=== PATIENT | male | born 1975 ===

== ENCOUNTER 2017-07-26 04:10 | Emergency (ER) | payer SELFPAY ==
[2017-07-26 04:43] VITALS: RESP 16
--- NOTE | 2017-07-26 05:05 | ED PDOC ---
HPI: Back Chief Complaint (Provider): Syncope History Per: Patient History/Exam Limitations: no limitations Onset/Duration Of Symptoms: Hrs Current Symptoms Are (Timing): Still Present Full Body Front + Back: 1 - Lumbar pain Quality Of Discomfort: Sharp ("pinching") Severity: Moderate Pain Scale Rating Of: 8 Previous Symptoms: Back Pain (lumbar) Exacerbating Factor(s): Movement Additional History Per: Family () Additional Complaint(s): Mr. Gennaro Blount is a pleasant 41 yo male with no sig PMHx presents to the ED after 2 syncopal episodes. stated that she was helping him to urinate when suddenly after voiding, he had lost consciousness for about 1 minute. After regaining consciousness, he was syncopal again, not responsive but breathing for an additional 2 minutes. Events leading to him requiring assistance to void : Yesterday, while at work lifting about 40 lbs, he felt a sudden and "pinching " pain at mid lumbar spine. Afterwards, he was seen by the company's physician who shared that Mr. Blount's XR of the lumbar spine was negative for fractures. Per patient, he was given an injection but he cant remember what. He was also given motrin for pain. Pain is at the medial aspect of his lower lumbar spine radiating bilaterally to his hips. Pain is intermittent ranging from as high as 10/10 to 3/10 when resting. Aggravating factors include slight movement. Alleviating factors include rest. Denies lower extremity loss of function, numbness, tingling, bowel/urinary incontinence, saddle anesthesia or recent direct trauma to his lumbar spine. He denies history of syncope. PCP: Dr. Jameson Monzon PMHx: none PSurgHx: none FamHx: htn Soc: Denies: smoking, alcohol, illicit drugs Meds: none NKDA <Rodriguez Ibarra - Last Filed: 07/26/17 06:58> <Gaston Smith - Last Filed: 07/26/17 19:44> Time Seen by Provider: 07/26/17 04:49 Chief Complaint (Nursing): Back Pain Past Medical History Vital Signs: Last Vital Signs Temp Pulse 66 07/26/17 04:41 Resp 16 07/26/17 04:41 BP 120/74 07/26/17 04:41 Pulse Ox 100 07/26/17 04:41 - Medical History PMH: No Chronic Diseases - Surgical History Surgical History: No Surg Hx - Family History Family History: States: Hypertension <Zay Ibarraang - Last Filed: 07/26/17 06:58> Vital Signs: Last Vital Signs Temp 97.3 F L 07/26/17 07:13 Pulse 80 07/26/17 10:06 Resp 16 07/26/17 10:06 BP 118/67 07/26/17 10:06 Pulse Ox 99 07/26/17 19:43 <Gaston Smith - Last Filed: 07/26/17 19:44> - Allergies Allergies/Adverse Reactions: Allergies Allergy/AdvReac Type Severity Reaction Status Date / Time No Known Allergies Allergy Verified 07/26/17 04:43 Supervising Attending Note - Attestation: I have personally seen and examined this patient.: Yes I have fully participated in the care of the patient.: Yes I have reviewed all pertinent clinical information: Yes - Notes: Notes:: Lower back pain, likely MSK in nature, no neuro deficit, patient dehydrated and states "can't eat", tired appearing, starting to improve with zofran, IVF, signed out to Dr. Stallings pending CT head. <Gaston Smith - Last Filed: 07/26/17 19:44> Review of Systems Cardiovascular: Negative for: Chest Pain Respiratory: Negative for: Shortness of Breath Gastrointestinal: Positive for: Vomiting. Negative for: Nausea Genitourinary Male: Negative for: Incontinence Musculoskeletal: Positive for: Back Pain Neurological: Negative for: Weakness, Numbness, Altered Mental Status <Rodriguez Ibarra - Last Filed: 07/26/17 06:58> Physical Exam - Reviewed Vital Signs Reviewed: Yes - Physical Exam Appears: Positive for: Uncomfortable Skin: Positive for: Normal Color, Warm, Dry Eye Exam: Positive for: EOMI. Negative for: Nystagmus ENT: Positive for: Hearing Is (normal). Negative for: Nasal Congestion Neck: Positive for: Normal Cardiovascular/Chest: Positive for: Regular Rate, Rhythm, Chest Non Tender Respiratory: Positive for: Normal Breath Sounds Gastrointestinal/Abdominal: Positive for: Normal Exam, Bowel Sounds, Soft. Negative for: Tenderness Back: Positive for: Vertebral Tenderness (paravertebral at L4-5 spine) Extremity: Positive for: Normal ROM Neurologic/Psych: Positive for: Alert, neon glass bender II-XII, Oriented <Rodriguez Ibarra - Last Filed: 07/26/17 06:58> - Laboratory Results Result Diagrams: 07/26/17 05:16 07/26/17 05:16 - ECG O2 Sat by Pulse Oximetry: 100 - Progress ED Course And Treament: D/W Dr. Smith, pending CT head. Pt vomiting while here given Zofran. Pain has improved with Toradol and cyclobenzaprine. Signed out to day team. <Rodriguez Ibarra - Last Filed: 07/26/17 06:58> - Laboratory Results Result Diagrams: 07/26/17 05:16 07/26/17 05:16 <Gaston Smith - Last Filed: 07/26/17 19:44> Disposition - Disposition Disposition: Transfer of Care (D/W Dr. Smith, pending CT head. Pt vomiting while here given Zofran. Pain has improved with Toradol and cyclobenzaprine. Signed out to day team.) Disposition Time: 07:00 <Rodriguez Ibarra - Last Filed: 07/26/17 06:58> <Gaston Smith - Last Filed: 07/26/17 19:44> - Clinical Impression Clinical Impression: Syncope, Acute back pain - Disposition Referrals: Eduard Montgomery MD [Medical Doctor] - Condition: IMPROVED Prescriptions: Cyclobenzaprine [Flexeril] 10 mg PO TID #21 tab Naproxen [Naprosyn] 500 mg PO BID PRN #20 tablet PRN Reason: Pain, Moderate (4-7) Instructions: Acute Low Back Pain (ED) Forms: [employer] (Estonian)
[2017-07-26 05:18] LABS: BASO # 0.1 K/uL (0.0-0.2); BASO % 0.9 % (0.0-2.0); EOS # 0.4 K/uL (0.0-0.7); EOS % 4.3 % (0.0-4.0); HEMATOCRIT 43.1 % (35.0-51.0); LYMPH # 1.6 K/uL (1.0-4.3); MEAN CELL VOLUME 93.4 fl (80.0-94.0); MEAN CORPUSCULAR HEMOGLOBIN 31.9 pg (27.0-31.0); MEAN CORPUSCULAR HGB CONC 34.1 g/dL (33.0-37.0); MEAN PLATELET VOLUME 7.6 fl (7.2-11.7); MONO # 0.5 K/uL (0.0-0.8); MONO % 5.5 % (0.0-10.0); NEUT # 6.8 K/uL (1.8-7.0); NEUT % 72.3 % (50.0-75.0); RED CELL DISTRIBUTION WIDTH 12.6 % (11.5-14.5); WHITE BLOOD COUNT 9.4 K/uL (4.8-10.8)
[2017-07-26 05:28] LABS: CALCIUM 9.3 mg/dL (8.4-10.2); CARBON DIOXIDE 24 mmol/L (22-30); CHLORIDE 105 mmol/L (98-107); GFR AFRICAN-AMERICAN > 60; GLUCOSE,RANDOM 163 mg/dL (75-110); SODIUM 140 mmol/l (132-148)
[2017-07-26 05:42] LABS: BLOOD UREA NITROGEN 18 mg/dl (9-20); POTASSIUM 4.3 MMOL/L (3.6-5.0)
[2017-07-26] MEDS ORDERED: Sodium Chloride 0.9% 1,000 ML IV STA (06:08)
[2017-07-26 07:13] VITALS: TEMP 97.3
--- NOTE | 2017-07-26 07:16 | ED PDOC ---
- Laboratory Results Result Diagrams: 07/26/17 05:16 07/26/17 05:16 - ECG O2 Sat by Pulse Oximetry: 99 (rA) Pulse Ox Interpretation: Normal Medical Decision Making Medical Decision Making: Receiving sign out: Patient signed out to me by Resident Stacey pending Ct Head. Scribe Attestation: Documented by Annita Peralta acting as a scribe for Gaston Smith MD. Provider Attestation: All medical record entries made by the Scribe were at my direction and personally dictated by me. I have reviewed the chart and agree that the record accurately reflects my personal performance of the history, physical exam, medical decision making, and the department course for this patient. I have also personally directed, reviewed, and agree with the discharge instructions and disposition. Disposition - Clinical Impression Clinical Impression: Syncope, Acute back pain - POA Present On Arrival: None - Disposition Referrals: Eduard Montgomery MD [Medical Doctor] - Disposition: Transfer of Care Disposition Time: 07:00 Condition: IMPROVED Prescriptions: Cyclobenzaprine [Flexeril] 10 mg PO TID #21 tab Naproxen [Naprosyn] 500 mg PO BID PRN #20 tablet PRN Reason: Pain, Moderate (4-7) Instructions: Acute Low Back Pain (ED) Forms: [employer] (Bulgarian) Patient Signed Over To: Madhuri Stallings Handoff Comments: CT Head Progress Note - Review of Symptoms Events since last encounter: Time: 0700 Patient signed out to Dr. Stallings pending CT Head and reevaluation.
--- NOTE | 2017-07-26 07:31 | ED PDOC ---
- Laboratory Results Result Diagrams: 07/26/17 05:16 07/26/17 05:16 - ECG O2 Sat by Pulse Oximetry: 99 (rA) Pulse Ox Interpretation: Normal Medical Decision Making Medical Decision Making: Receiving sign out: Patient signed out to me by Dr. Smith at [address] Head. Scribe Attestation: Documented by Marylu Sierra acting as a scribe for Madhuri Stallings MD. Provider Attestation: All medical record entries made by the Scribe were at my direction and personally dictated by me. I have reviewed the chart and agree that the record accurately reflects my personal performance of the history, physical exam, medical decision making, and the department course for this patient. I have also personally directed, reviewed, and agree with the discharge instructions and disposition. 9.45a - patient is feeling better. CT head - read normal. will d/c with NSAIDs and cyclobenzaprine Disposition Doctor Will See Patient In The: Office Counseled Patient/Family Regarding: Diagnosis, Need For Followup, Rx Given - Clinical Impression Clinical Impression: Syncope, Acute back pain - POA Present On Arrival: None - Disposition Referrals: Eduard Montgomery MD [Medical Doctor] - Disposition: Routine/Home Disposition Time: 09:59 Condition: IMPROVED Instructions: Acute Low Back Pain (ED) Forms: [employer] (Pakistani)
--- NOTE | 2017-07-26 09:50 | CT ---
PROCEDURE: CT HEAD WITHOUT CONTRAST. HISTORY: vomiting, weakness, sycnope COMPARISON: None available. TECHNIQUE: Axial computed tomography images were obtained through the head/brain without intravenous contrast. Radiation dose: Total exam DLP = mGy-cm. This CT exam was performed using one or more of the following dose reduction techniques: Automated exposure control, adjustment of the mA and/or kV according to patient size, and/or use of iterative reconstruction technique. FINDINGS: HEMORRHAGE: No intracranial hemorrhage. BRAIN: No mass effect or edema. No atrophy or chronic microvascular ischemic changes. VENTRICLES: Unremarkable. No hydrocephalus. CALVARIUM: Unremarkable. PARANASAL SINUSES: Unremarkable as visualized. No significant inflammatory changes. MASTOID AIR CELLS: Unremarkable as visualized. No inflammatory changes. OTHER FINDINGS: None. IMPRESSION: Normal CT of the Head.
[2017-07-26 10:06] VITALS: BP 118/67; PULSE 80
--- NOTE | 2017-07-26 11:12 | RAD ---
HISTORY: syncope COMPARISON: No prior. TECHNIQUE: Chest PA and lateral FINDINGS: LUNGS: No active pulmonary disease. PLEURA: No significant pleural effusion identified. No pneumothorax apparent. CARDIOVASCULAR: Normal. OSSEOUS STRUCTURES: No significant abnormalities. VISUALIZED UPPER ABDOMEN: Normal. OTHER FINDINGS: None. IMPRESSION: No active disease.
[2017-07-26 19:43] VITALS: O2SAT 99
--- NOTE | 2017-07-29 17:39 | CARD ---
APPROVED REPORT EKG Measurement Heart [id number] <Conclusion> Sinus bradycardia Minimal voltage criteria for LVH, may be normal variant Borderline ECG
== END 2017-07-26 10:24 | disposition home or self-care (01) ==
LOC: H.ER 04:10
DX: R55 Syncope and collapse (principal); M54.9 Dorsalgia, unspecified; I10 Essential (primary) hypertension
CPT/HCPCS: 70450; 71020; 80048; 84484; 85025; 96361; 96374; 96375; 99284; J1885; J2405; J7040